=== PATIENT | female | born 1980 | race Caucasian/White ===

== ENCOUNTER 2017-11-28 18:03 | Emergency (ER) | payer OTHER ==
[~2017-11-28] VITALS: Ht 167.6 cm; Wt 77.7 kg
[2017-11-28 18:21] VITALS: BP 127/74
[2017-11-28] MEDS ORDERED: AMOX500T2 PO (18:34)
[2017-11-28] MEDS ORDERED: HYDROCODONE/ACETAMINOPHEN 5-325 MG TABLET PO ONE (20:15)
== END 2017-11-28 20:34 | disposition home or self-care (01) ==
LOC: EMS 18:06
DX: K02.9 Dental caries, unspecified (principal)
CPT/HCPCS: 99283

== ENCOUNTER 2019-07-26 23:45 | Emergency (ER) | payer OTHER ==
[~2019-07-26] VITALS: Ht 167.6 cm; Wt 79.5 kg
[~2019-07-26 23:45] MED LIST: AMOX500T2 PO
[2019-07-26] MEDS ORDERED: CEFT1VIA15 IM (23:55)
[2019-07-27 02:57] VITALS: BP 127/83
== END 2019-07-27 02:55 | disposition home or self-care (01) ==
LOC: EMS 23:48
DX: J02.9 Acute pharyngitis, unspecified (principal); R06.02 Shortness of breath; F17.210 Nicotine dependence, cigarettes, uncomplicated; Z79.899 Other long term (current) drug therapy